=== PATIENT | male | born 1980 | race African-American/Black ===

== ENCOUNTER 2017-12-22 12:58 | Emergency (ER) | payer MEDICARE, MEDICAID ==
[~2017-12-22] VITALS: Ht 185.4 cm; Wt 81.0 kg
[2017-12-22 13:27] VITALS: BP 105/65
== END 2017-12-22 14:47 | disposition home or self-care (01) ==
LOC: ER 14:12
DX: T22.00XA Burn of unspecified degree of shoulder and upper limb, except wrist and hand, unspecified site, initial encounter (principal); T14.8XXA Other injury of unspecified body region, initial encounter; V49.49XA Driver injured in collision with other motor vehicles in traffic accident, initial encounter; X08.8XXA Exposure to other specified smoke, fire and flames, initial encounter; Y93.89 Activity, other specified; Y92.410 Unspecified street and highway as the place of occurrence of the external cause
CPT/HCPCS: 99281

== ENCOUNTER 2018-07-03 10:36 | Emergency (ER) | payer MEDICARE, MEDICAID ==
[~2018-07-03] VITALS: Ht 193 cm; Wt 79.0 kg
[2018-07-03] MEDS ORDERED: AZITHROMYCIN 500 MG TABLET PO ONE (12:00)
[2018-07-03] MEDS ORDERED: LIDOCAINE HCL 1% 20ML VIAL (Pyxis) INJ INFIL ONE (12:00)
[2018-07-03] MEDS ORDERED: CEFTRIAXONE SODIUM 250 MG/VIAL IM ONE (12:00)
[2018-07-03 12:37] VITALS: BP 118/60
== END 2018-07-03 12:39 | disposition home or self-care (01) ==
LOC: ER 10:36
DX: R36.9 Urethral discharge, unspecified (principal); F12.10 Cannabis abuse, uncomplicated; Z20.2 Contact with and (suspected) exposure to infections with a predominantly sexual mode of transmission; Z88.2 Allergy status to sulfonamides
CPT/HCPCS: 96372; 99283; J0696; J3490

== ENCOUNTER 2019-09-17 00:06 | Emergency (ER) | payer MEDICARE, MEDICAID ==
[~2019-09-17] VITALS: Ht 190.5 cm; Wt 77.0 kg
[2019-09-17 01:43] VITALS: BP 122/68
== END 2019-09-17 01:43 | disposition home or self-care (01) ==
LOC: ER 00:06
DX: L42 Pityriasis rosea (principal); Z88.2 Allergy status to sulfonamides
CPT/HCPCS: 99282